=== PATIENT | male | born 1960 | race Caucasian/White ===

== ENCOUNTER 2021-05-06 20:55 | Emergency (ER) | payer OTHER ==
[~2021-05-06] VITALS: Ht 172.7 cm; Wt 74.0 kg
[2021-05-06] MEDS ORDERED: IBUPROFEN 600MG TABLET PO STA (21:08)
[2021-05-06 21:23] LABS: BASOPHILS % 0.9 % (0.0-2.0); EOSINOPHILS % 0.1 % (0.0-5.0); HEMATOCRIT. 44.4 % (42.0-52.0); HEMOGLOBIN. 16.2 g/dL (14.0-18.0); LYMPHOCYTES % 33.2 % (20.0-50.0); MEAN CORPUSCULAR HEMOGLOBIN 33.6 pg (28.0-32.0); MONOCYTES % 8.8 % (2.0-8.0); PLATELET 269 x1000/uL (130-400); RED BLOOD CELL COUNT 4.83 mill/uL (4.7-6.1); RED CELL DISTRIBUTION WIDTH 13.2 % (11.6-14.6)
[2021-05-06 21:29] LABS: CHLORIDE 95 mEq/L (98-107)
[2021-05-06 21:33] LABS: ETHANOL BLOOD 254 mg/dL
[2021-05-06] MEDS ORDERED: POTASSIUM CHLORIDE 20MEQ TABLET SR PO ONE (22:15)
[2021-05-06] MEDS ORDERED: LORAZEPAM 1MG TABLET PO ONE (22:15)
[2021-05-07] VITALS: BP 172/84
== END 2021-05-07 00:02 | disposition home or self-care (01) ==
LOC: ER 20:55
DX: T51.0X1A Toxic effect of ethanol, accidental (unintentional), initial encounter (principal); R07.89 Other chest pain; E87.6 Hypokalemia; F17.200 Nicotine dependence, unspecified, uncomplicated; Y92.89 Other specified places as the place of occurrence of the external cause
CPT/HCPCS: 36415; 71045; 80053; 80320; 84484; 85025; 93005; 99285; G0480

== ENCOUNTER 2022-01-20 23:10 | Emergency (ER) | payer MEDICAID, OTHER ==
[~2022-01-20] VITALS: Ht 177.8 cm; Wt 79.0 kg
[~2022-01-20 23:10] MED LIST: ATOR20TA65 MT; LOSA100T32 MT; THIA100T72 MT
[2022-01-21] MEDS ORDERED: ASPIRIN 325MG EC TABLET PO ONE
[2022-01-21] MEDS ORDERED: NITROGLYCERIN 0.4MG TABLET SL SL ONE
[2022-01-21] MEDS ORDERED: SODIUM CHLORIDE 0.9% 1,000 ML IV ONE
[2022-01-21] MEDS ORDERED: LORAZEPAM 2MG/ML CPJ IV ONE
[2022-01-21 00:11] LABS: BASOPHILS % 0.8 % (0.0-2.0); CLARITY URINE CLEAR (CLEAR); COLOR URINE YELLOW (YELLOW); EOSINOPHILS % 0.5 % (0.0-5.0); HEMATOCRIT. 44.7 % (42.0-52.0); HEMOGLOBIN. 15.7 g/dL (14.0-18.0); KETONES URINE NEGATIVE (NEGATIVE); LEUKOCYTE ESTERASE URINE NEGATIVE (NEGATIVE); LYMPHOCYTES % 34.7 % (20.0-50.0); MEAN CORPUSCULAR HEMOGLOBIN 31.3 pg (28.0-32.0); MEAN CORPUSCULAR VOLUME 88.9 fL (80.0-94.0); MEAN PLATELET VOLUME 8.6 fl (7.4-10.4); MONOCYTES % 8.4 % (2.0-8.0); NEUTROPHILS % 55.6 % (40.0-76.0); NITRITE URINE NEGATIVE (NEGATIVE); OCCULT BLOOD URINE NEGATIVE (NEGATIVE); PH URINE 5.5 (4.5-8.0); PLATELET 232 x1000/uL (130-400); PROTEIN URINE TRACE (NEGATIVE); RED BLOOD CELL COUNT 5.03 mill/uL (4.7-6.1); SPECIFIC GRAVITY URINE 1.006 (1.005-1.030); UROBILINOGEN URINE 0.2 E.U./dL (0.2-1.0)
[2022-01-21 00:12] LABS: CHLORIDE 98 mEq/L (98-107)
[2022-01-21 00:16] LABS: ETHANOL BLOOD 104 mg/dL
[2022-01-21 00:27] LABS: *BARBITURATES SCREEN URINE NEGATIVE (NEGATIVE); *BENZODIAZEPINES SCREEN URINE NEGATIVE (NEGATIVE)
[2022-01-21 00:28] LABS: *AMPHETAMINES SCREEN URINE PRESUMTIVE POSITIVE (NEGATIVE); *COCAINE SCREEN URINE NEGATIVE (NEGATIVE); CANNABINOID URINE SCREEN NEGATIVE (NEGATIVE); METHADONE URINE SCREEN NEGATIVE (NEGATIVE); OPIATES URINE SCREEN NEGATIVE (NEGATIVE); PHENCYCLIDINE URINE SCREEN NEGATIVE (NEGATIVE)
[2022-01-21] MEDS ORDERED: ONDANSETRON HCL 4MG/2ML INJ IV ONE (01:00)
[2022-01-21] MEDS ORDERED: KETOROLAC 30MG/ML VIAL IV ONE (01:00)
[2022-01-21] MEDS ORDERED: LOSA100T32 MT (01:47)
[2022-01-21] MEDS ORDERED: MULT-1146 MT (01:48)
[2022-01-21] MEDS ORDERED: ATOR20TA65 MT (01:48)
[2022-01-21 02:10] VITALS: BP 148/90
== END 2022-01-21 02:15 | disposition home or self-care (01) ==
LOC: ER 23:10
DX: R07.89 Other chest pain (principal); F15.10 Other stimulant abuse, uncomplicated; F10.10 Alcohol abuse, uncomplicated; I10 Essential (primary) hypertension; Z79.899 Other long term (current) drug therapy
CPT/HCPCS: 36415; 71045; 80053; 80305; 80320; 81003; 83690; 83880; 84484; 85025; 93005; 96361; 96374; 96375; 99285; J1885; J2060; J2405; J7030; G0480

== ENCOUNTER 2022-05-06 22:54 | Emergency (ER) | payer MEDICAID, OTHER ==
[~2022-05-06] VITALS: Ht 167.6 cm; Wt 70.0 kg
[~2022-05-06 22:54] MED LIST changes: +MULT-1146 MT
[2022-05-06] MEDS ORDERED: MAGNESIUM/ALUMINUM HYDROXIDE/SIMETHICONE 30ML UDC PO STA (23:32)
[2022-05-06] MEDS ORDERED: LORAZEPAM 2MG/ML CPJ IV ONE (23:45)
[2022-05-06] MEDS ORDERED: SODIUM CHLORIDE 0.9% 1,000 ML IV ONE (23:45)
[2022-05-06 23:56] LABS: HEMATOCRIT. 45.5 % (42.0-52.0); HEMOGLOBIN. 15.8 g/dL (14.0-18.0); MEAN CORPUSCULAR HEMOGLOBIN 33.3 pg (28.0-32.0); MEAN CORPUSCULAR VOLUME 95.8 fL (80.0-94.0); MEAN PLATELET VOLUME 8.4 fl (7.4-10.4); PLATELET 293 x1000/uL (130-400); RED BLOOD CELL COUNT 4.75 mill/uL (4.7-6.1); RED CELL DISTRIBUTION WIDTH 14.9 % (11.6-14.6)
[2022-05-07 00:24] LABS: CHLORIDE 99 mEq/L (98-107)
[2022-05-07 00:34] LABS: ETHANOL BLOOD 264 mg/dL
[2022-05-07 01:40] VITALS: BP 145/80
[2022-05-07 03:34] LABS: PLATELET ESTIMATE NORMAL
== END 2022-05-07 01:46 | disposition home or self-care (01) ==
LOC: ER 22:54
DX: F15.10 Other stimulant abuse, uncomplicated (principal); R07.89 Other chest pain; I10 Essential (primary) hypertension; E87.6 Hypokalemia; R00.0 Tachycardia, unspecified; F41.9 Anxiety disorder, unspecified; F17.210 Nicotine dependence, cigarettes, uncomplicated
CPT/HCPCS: 36415; 71045; 80053; 80320; 83690; 83880; 84484; 85025; 93005; 96361; 96374; 99291; J2060; J7030; G0480

== ENCOUNTER 2022-05-07 01:57 | Emergency (ER) | payer OTHER ==
[~2022-05-07] VITALS: Ht 167.6 cm; Wt 83.0 kg
[2022-05-07 03:28] VITALS: BP 145/77
== END 2022-05-07 03:28 | disposition home or self-care (01) ==
LOC: ER 01:57
DX: F15.10 Other stimulant abuse, uncomplicated (principal); G89.29 Other chronic pain; R00.0 Tachycardia, unspecified
CPT/HCPCS: 93005; 99283

== ENCOUNTER 2023-06-08 01:57 | Emergency (ER) | payer MEDICAID, OTHER ==
[~2023-06-08] VITALS: Ht 165.1 cm; Wt 77.0 kg
[~2023-06-08 01:57] MED LIST changes: -LOSA100T32 MT; +LOSA100T33 MT
[2023-06-08 01:59] VITALS: TEMP 98.3; O2SAT 100
[2023-06-08] MEDS ORDERED: ONDANSETRON 4MG ODT PO STA (01:59)
[2023-06-08 02:51] LABS: EOSINOPHILS % 1.5 % (0.0-5.0); HEMATOCRIT. 40.2 % (42.0-52.0); HEMOGLOBIN. 14.4 g/dL (14.0-18.0); LYMPHOCYTES % 40.3 % (20.0-50.0); MEAN CORPUSCULAR HEMOGLOBIN 34.5 pg (28.0-32.0); MEAN CORPUSCULAR VOLUME 96.4 fL (80.0-94.0); MEAN PLATELET VOLUME 8.3 fl (7.4-10.4); MONOCYTES % 13.2 % (2.0-8.0); PLATELET 210 x1000/uL (130-400); RED BLOOD CELL COUNT 4.17 mill/uL (4.7-6.1); RED CELL DISTRIBUTION WIDTH 14.8 % (11.6-14.6)
[2023-06-08 03:08] LABS: CHLORIDE 101 mEq/L (98-107)
[2023-06-08] MEDS ORDERED: LIDOCAINE 5% PATCH TOP ONE (03:15)
[2023-06-08] MEDS ORDERED: IBUPROFEN 600MG TABLET PO ONE (03:15)
[2023-06-08 03:19] LABS: ETHANOL BLOOD 144 mg/dL (-10)
[2023-06-08] MEDS ORDERED: SODIUM CHLORIDE 0.9% 1,000 ML IV ONE (03:30)
[2023-06-08] MEDS ORDERED: MORPHINE SULFATE 4 MG/ML CPJ (NOT FOR IM USE) IV ONE (03:30)
[2023-06-08] MEDS ORDERED: ONDANSETRON HCL 4MG/2ML INJ IV ONE (03:30)
[2023-06-08 03:37] VITALS: BP 173/96; PULSE 92; RESP 18
[2023-06-08] MEDS ORDERED: IOHEXOL-350 100 ML BOTTLE ONE (05:27)
[2023-06-08] MEDS ORDERED: ASPIRIN 81MG TABLET PO ONE (06:15)
== END 2023-06-08 09:07 | disposition left against medical advice (07) ==
LOC: ER 01:57 → EDBEDREQ 09:02 → EDBEDREQTM 09:02 → ER 09:07 → CANBEDREQ 20:27
DX: R07.89 Other chest pain (principal); F10.229 Alcohol dependence with intoxication, unspecified; I10 Essential (primary) hypertension; F15.10 Other stimulant abuse, uncomplicated; Y90.6 Blood alcohol level of 120-199 mg/100 ml
CPT/HCPCS: 80053; 80307; 80329; 80320; 83690; 85025; 84484; 36415; 74174; 71045; 71275; 93005; 96374; 96375; 99285; Q9967; Z7610 ×2; Q0162; J2405; J2270; J7030; G0480

== ENCOUNTER 2023-07-18 01:38 | Emergency (ER) | payer MEDICAID, OTHER ==
[~2023-07-18] VITALS: Ht 170.2 cm; Wt 67.0 kg
[2023-07-18 01:50] VITALS: BP 190/100; PULSE 96; RESP 16; TEMP 98.2; O2SAT 98
== END 2023-07-18 06:05 | disposition home or self-care (01) ==
LOC: ER 01:53
DX: S51.012A Laceration without foreign body of left elbow, initial encounter (principal); I10 Essential (primary) hypertension; F15.10 Other stimulant abuse, uncomplicated; Z79.899 Other long term (current) drug therapy; W18.39XA Other fall on same level, initial encounter; Y93.89 Activity, other specified; Y92.89 Other specified places as the place of occurrence of the external cause; Y99.8 Other external cause status
CPT/HCPCS: 73060; 73070; 12004; 99284; Z7610 ×3

== ENCOUNTER 2023-10-23 10:25 | Emergency (ER) | payer MEDICAID, OTHER ==
[~2023-10-23] VITALS: Ht 170.2 cm; Wt 68.0 kg
[2023-10-23 10:33] VITALS: BP 162/109; PULSE 105; RESP 16; O2SAT 97
[2023-10-23 11:38] LABS: EOSINOPHILS % 1.2 % (0.0-5.0); HEMATOCRIT. 42.2 % (42.0-52.0); HEMOGLOBIN. 14.4 g/dL (14.0-18.0); LYMPHOCYTES % 47.6 % (20.0-50.0); MEAN CORPUSCULAR HEMOGLOBIN 31.4 pg (28.0-32.0); MEAN CORPUSCULAR HGB CONC 34.1 g/dL (31.0-37.0); MEAN CORPUSCULAR VOLUME 91.9 fL (80.0-94.0); MEAN PLATELET VOLUME 9.1 fl (7.4-10.4); MONOCYTES % 9.6 % (2.0-8.0); NEUTROPHILS % 39.6 % (40.0-76.0); PLATELET 130 x1000/uL (130-400); RED BLOOD CELL COUNT 4.59 mill/uL (4.7-6.1); RED CELL DISTRIBUTION WIDTH 14.1 % (11.6-14.6)
[2023-10-23 11:59] LABS: ALANINE AMINOTRANSFERASE 42 IU/L (10-49); ALBUMIN 3.8 g/dL (3.2-4.8); ASPARTATE AMINOTRANSFERASE 114 IU/L (<34); BILIRUBIN TOTAL 1.5 mg/dL (0.1-1.0); CARBON DIOXIDE 27 mEq/L (21-32); CHLORIDE 99 mEq/L (98-107); GLUCOSE 100 mg/dL (70-105); POTASSIUM 3.4 mEq/L (3.5-5.1); PROTEIN TOTAL 7.1 g/dL (6.0-8.3); SODIUM 139 mEq/L (136-145); UREA NITROGEN BLOOD 13 mg/dL (9-23)
[2023-10-23] MEDS ORDERED: ACETAMINOPHEN 325MG TABLET PO ONE (12:15)
[2023-10-23 12:23] LABS: ETHANOL BLOOD 437 mg/dL (<10)
[2023-10-23 12:26] VITALS: TEMP 98
[2023-10-23] MEDS ORDERED: TOPUD PO (13:00)
== END 2023-10-23 14:09 | disposition home or self-care (01) ==
LOC: ER 10:25
DX: F10.129 Alcohol abuse with intoxication, unspecified (principal); S00.03XA Contusion of scalp, initial encounter; W18.30XA Fall on same level, unspecified, initial encounter; Y93.89 Activity, other specified; Y92.89 Other specified places as the place of occurrence of the external cause; Y99.8 Other external cause status; Y90.8 Blood alcohol level of 240 mg/100 ml or more
CPT/HCPCS: 36415; 80053; 80320; 85025; 99284; G0480

== ENCOUNTER 2023-12-12 03:06 | Emergency (ER) | payer OTHER ==
[~2023-12-12] VITALS: Ht 165.1 cm; Wt 72.0 kg
[~2023-12-12 03:06] MED LIST changes: +L25 PO; -LOSA100T33 MT; +LOSA100T33 PO; +LOSA25TA26 PO; +OMEP40CA20 MT; +TOPUD PO
[2023-12-12 03:08] VITALS: BP 161/102; PULSE 96; RESP 18; TEMP 98.1; O2SAT 99
[2023-12-12] MEDS ORDERED: ASPIRIN 81MG TABLET PO ONE (03:15)
[2023-12-12 04:10] LABS: BASOPHILS % 2.7 % (0.0-2.0); EOSINOPHILS % 1.9 % (0.0-5.0); HEMATOCRIT. 40.6 % (42.0-52.0); HEMOGLOBIN. 14.1 g/dL (14.0-18.0); LYMPHOCYTES % 44.5 % (20.0-50.0); MEAN CORPUSCULAR HEMOGLOBIN 31.3 pg (28.0-32.0); MEAN CORPUSCULAR HGB CONC 34.7 g/dL (31.0-37.0); MEAN PLATELET VOLUME 8.4 fl (7.4-10.4); MONOCYTES % 9.9 % (2.0-8.0); PLATELET 253 x1000/uL (130-400); RED BLOOD CELL COUNT 4.51 mill/uL (4.7-6.1); RED CELL DISTRIBUTION WIDTH 15.2 % (11.6-14.6)
[2023-12-12 04:24] LABS: ALANINE AMINOTRANSFERASE 40 IU/L (10-49); ALBUMIN 4.2 g/dL (3.2-4.8); ASPARTATE AMINOTRANSFERASE 85 IU/L (<34); BILIRUBIN TOTAL 0.8 mg/dL (0.1-1.0); CALCIUM 8.9 mg/dL (8.7-10.4); CARBON DIOXIDE 17 mEq/L (21-32); CHLORIDE 101 mEq/L (98-107); ETHANOL BLOOD 137 mg/dL (<10); GLUCOSE 102 mg/dL (70-105); POTASSIUM 3.5 mEq/L (3.5-5.1); PROTEIN TOTAL 8.3 g/dL (6.0-8.3); SODIUM 134 mEq/L (136-145); UREA NITROGEN BLOOD 18 mg/dL (9-23)
[2023-12-12 04:45] LABS: CREATININE 1.7 mg/dL (0.6-1.3)
[2023-12-12 07:51] LABS: TROPONIN I HIGH SENSITIVITY 46 ng/L (3.0-53)
== END 2023-12-12 08:24 | disposition home or self-care (01) ==
LOC: ER 03:06
DX: F10.10 Alcohol abuse, uncomplicated (principal); R07.89 Other chest pain; F15.10 Other stimulant abuse, uncomplicated; I10 Essential (primary) hypertension; Y90.6 Blood alcohol level of 120-199 mg/100 ml
CPT/HCPCS: 36415; 71045; 80053; 80320; 83880; 84484; 85025; 93005; 99285; G0480

== ENCOUNTER 2024-07-06 15:04 | Inpatient (IN) | payer MEDICAID, OTHER ==
[~2024-07-06] VITALS: Ht 167.6 cm; Wt 70.3 kg
[~2024-07-06 15:04] MED LIST changes: +CHLO25CA11 PO; -L25 PO; -LOSA25TA26 PO
[2024-07-06 15:33] LABS: CHLORIDE 101 mEq/L (98-107); POTASSIUM 3.1 mEq/L (3.5-5.1); SODIUM 141 mEq/L (136-145)
[2024-07-06 15:34] LABS: CALCIUM 8.8 mg/dL (8.7-10.4); CARBON DIOXIDE 12 mEq/L (21-32)
[2024-07-06 15:39] LABS: CREATININE 1.2 mg/dL (0.6-1.3); GLUCOSE 188 mg/dL (70-105); UREA NITROGEN BLOOD 14 mg/dL (9-23)
[2024-07-06 15:40] LABS: ETHANOL BLOOD 16 mg/dL (<10)
[2024-07-06 15:55] LABS: LACTIC ACID 16.8 mmol/L (0.4-2.0)
[2024-07-06] MEDS: ONDANSETRON HCL 4MG/2ML INJ IV STA (15:55)
[2024-07-06] MEDS: SODIUM CHLORIDE 0.9% 1,000 ML IV ONE ×2 (15:55→16:00)
[2024-07-06] MEDS: CHLORDIAZEPOXIDE 25MG CAPSULE PO NR (16:00)
[2024-07-06] MEDS ORDERED: CHLORDIAZEPOXIDE 25MG CAPSULE PO ONE (16:00)
[2024-07-06 16:12] LABS: BASOPHILS % 1.7 % (0.0-2.0); EOSINOPHILS % 0.2 % (0.0-5.0); HEMATOCRIT. 36.2 % (42.0-52.0); HEMOGLOBIN. 11.5 g/dL (14.0-18.0); LYMPHOCYTES % 16.8 % (20.0-50.0); MEAN CORPUSCULAR HEMOGLOBIN 27.9 pg (28.0-32.0); MEAN CORPUSCULAR HGB CONC 31.7 g/dL (31.0-37.0); MEAN PLATELET VOLUME 9.4 fl (7.4-10.4); MONOCYTES % 9.2 % (2.0-8.0); NEUTROPHILS % 72.1 % (40.0-76.0); PLATELET 145 x1000/uL (130-400); RED BLOOD CELL COUNT 4.11 mill/uL (4.7-6.1); RED CELL DISTRIBUTION WIDTH 15.9 % (11.6-14.6); WHITE BLOOD COUNT 4.9 x1000/uL (4.5-11.0)
[2024-07-06 17:59] LABS: CLARITY URINE CLEAR (CLEAR); COLOR URINE YELLOW (YELLOW); GLUCOSE URINE NEGATIVE (NEGATIVE); KETONES URINE 1+ (NEGATIVE); LEUKOCYTE ESTERASE URINE TRACE (NEGATIVE); NITRITE URINE NEGATIVE (NEGATIVE); OCCULT BLOOD URINE TRACE (NEGATIVE); PH URINE 6.5 (4.5-8.0); PROTEIN URINE 1+ (NEGATIVE); SPECIFIC GRAVITY URINE 1.013 (1.005-1.030)
[2024-07-06 18:13] LABS: *AMPHETAMINES SCREEN URINE PRESUMPTIVE POSITIVE (NEGATIVE); *BARBITURATES SCREEN URINE NEGATIVE (NEGATIVE); *BENZODIAZEPINES SCREEN URINE NEGATIVE (NEGATIVE); *COCAINE SCREEN URINE NEGATIVE (NEGATIVE); CANNABINOID URINE SCREEN NEGATIVE (NEGATIVE); METHADONE URINE SCREEN NEGATIVE (NEGATIVE); OPIATES URINE SCREEN NEGATIVE (NEGATIVE); PHENCYCLIDINE URINE SCREEN NEGATIVE (NEGATIVE)
[2024-07-06 18:34] LABS: BACTERIA URINE 1+; SQUAMOUS EPITHELIAL CELL URINE RARE /lpf (RARE/1+)
[2024-07-06] MEDS ORDERED: MORPHINE SULFATE 2 MG/ML INJ (NOT FOR IM USE) IV PRN (23:45)
[2024-07-06] MEDS ORDERED: ACETAMINOPHEN 325MG TABLET PO PRN (23:45)
[2024-07-06] MEDS ORDERED: ZOLPIDEM TARTRATE 5MG TABLET PO PRN (23:45)
[2024-07-06] MEDS ORDERED: LORAZEPAM 2MG/ML INJ IV PRN (23:45)
[2024-07-06] MEDS ORDERED: ONDANSETRON HCL 4MG/2ML INJ IV PRN (23:45)
[2024-07-07 01:25] VITALS: BP 145/95; PULSE 83; RESP 19; TEMP 36.9474; TEMP 36.974; O2SAT 96
[2024-07-07] MEDS: FOLIC ACID 1 MG, THIAMINE HCL 100 MG, MVI, ADULT NO.1 10 ML in DEXTROSE 5% WATER 1,000 ML IV SCH (03:55)
[2024-07-07 06:18] VITALS: BP 138/88; RESP 18; TEMP 36.72516; O2SAT 97
[2024-07-07 07:20] LABS: CARBON DIOXIDE 29 mEq/L (21-32); CHLORIDE 99 mEq/L (98-107); SODIUM 138 mEq/L (136-145)
[2024-07-07 07:22] LABS: CALCIUM 8.1 mg/dL (8.7-10.4)
[2024-07-07 07:26] LABS: CREATININE 0.9 mg/dL (0.6-1.3)
[2024-07-07 07:27] LABS: GLUCOSE 106 mg/dL (70-105); UREA NITROGEN BLOOD 9 mg/dL (9-23)
[2024-07-07 07:42] LABS: EOSINOPHILS % 2.6 % (0.0-5.0); HEMATOCRIT. 35.3 % (42.0-52.0); HEMOGLOBIN. 11.4 g/dL (14.0-18.0); LYMPHOCYTES % 27.6 % (20.0-50.0); MEAN CORPUSCULAR HEMOGLOBIN 27.9 pg (28.0-32.0); MEAN CORPUSCULAR HGB CONC 32.5 g/dL (31.0-37.0); MEAN PLATELET VOLUME 9.1 fl (7.4-10.4); MONOCYTES % 14.3 % (2.0-8.0); NEUTROPHILS % 54.5 % (40.0-76.0); PLATELET 93 x1000/uL (130-400); RED CELL DISTRIBUTION WIDTH 15.7 % (11.6-14.6); WHITE BLOOD COUNT 3.7 x1000/uL (4.5-11.0)
[2024-07-07 08:54] LABS: POTASSIUM 2.4 mEq/L (3.5-5.1)
[2024-07-07] MEDS: CHLORDIAZEPOXIDE 25MG CAPSULE PO SCH (09:08)
[2024-07-07] MEDS: PANTOPRAZOLE 40MG DR TABLET PO SCH (09:09)
[2024-07-07] MEDS: ENOXAPARIN 40MG/0.4ML SYR SUBCUT SCH (09:09)
[2024-07-07] MEDS: POTASSIUM CHLORIDE 20MEQ/PACKET PO NR (09:13)
[2024-07-07] MEDS: KCL 20MEQ/100ML PREMIX 100 ML IV SCH (11:15)
[2024-07-07 17:30] VITALS: BP 147/85; PULSE 71; RESP 16; TEMP 36.9184
[2024-07-07 20:00] VITALS: BP 134/87; PULSE 81; RESP 20; TEMP 36.61404; O2SAT 98
[2024-07-08] VITALS: BP 141/86; PULSE 69; RESP 19; TEMP 36.78072; O2SAT 98
[2024-07-08 04:00] VITALS: BP 135/86; PULSE 67; RESP 20; TEMP 35.89176; O2SAT 96
[2024-07-08 08:00] VITALS: BP 128/81; PULSE 71; RESP 18; TEMP 36.72516; O2SAT 98
[2024-07-08 12:00] VITALS: BP 140/89; PULSE 64; RESP 16; TEMP 36.44736; O2SAT 98
[2024-07-08 16:00] VITALS: BP 154/87; PULSE 61; RESP 16; TEMP 36.89184; O2SAT 98
[2024-07-08 16:33] LABS: CHLORIDE 102 mEq/L (98-107); POTASSIUM 3.2 mEq/L (3.5-5.1); SODIUM 138 mEq/L (136-145)
[2024-07-08 16:34] LABS: CARBON DIOXIDE 29 mEq/L (21-32)
[2024-07-08 16:39] LABS: CREATININE 1.1 mg/dL (0.6-1.3); GLUCOSE 97 mg/dL (70-105); UREA NITROGEN BLOOD 10 mg/dL (9-23)
[2024-07-08] MEDS: POTASSIUM CHLORIDE 20MEQ TABLET SR PO NR (18:01)
[2024-07-08 20:00] VITALS: BP 148/91; PULSE 74; RESP 20; TEMP 36.3918; O2SAT 96
[2024-07-09] VITALS (7 sets, daily range): BP systolic 132–146; BP diastolic 72–98; PULSE 70–96; RESP 18–20; TEMP 36.50292–37.2252; O2SAT 96–99
[2024-07-09] MEDS ORDERED: POTASSIUM CHLORIDE 20MEQ TABLET SR PO SCH (12:30)
[2024-07-09 15:42] LABS: POTASSIUM 3.8 mEq/L (3.5-5.1)
[2024-07-10] VITALS: BP 162/94; PULSE 71; RESP 20; TEMP 36.61404; O2SAT 99
[2024-07-10 04:00] VITALS: BP 171/92; PULSE 67; RESP 18; TEMP 36.89184; O2SAT 97
[2024-07-10] MEDS: CLONIDINE 0.1MG TABLET PO PRN (05:13)
== END 2024-07-10 11:00 | disposition home or self-care (01) | DRG 53 ==
LOC: ER 15:04 → EDBEDREQ 16:01 → 5WST 18:05 → EDBEDREQ 18:23 → 8WST 07-07 17:25
PROVIDERS: ADMIT Internal Medicine; ATTEND Internal Medicine
DX: R56.9 Unspecified convulsions (principal); G91.9 Hydrocephalus, unspecified; G93.89 Other specified disorders of brain; F10.239 Alcohol dependence with withdrawal, unspecified; I10 Essential (primary) hypertension; Z59.01 Sheltered homelessness; Z79.899 Other long term (current) drug therapy
CPT/HCPCS: 36415; 80048; 80305; 80320; 81003; 83605; 84132; 85025; 93005; 97162; 99285; J1650; J2405; J3411; J3480; J3490; J7030; J7070; G0480